=== PATIENT | male | born 1990 | race Hispanic/Latino ===

== ENCOUNTER 2017-01-02 14:06 | Emergency (ER) | payer SELFPAY ==
[2017-01-02 14:16] VITALS: TEMP 99
[2017-01-02] MEDS ORDERED: METOPROLOL TARTRATE 50 MG TAB PO ONE (14:27)
[2017-01-02] MEDS ORDERED: ASPIRIN TABLET 325 MG TAB PO ONE (14:30)
--- NOTE | 2017-01-02 15:18 | RAD ---
EXAM DESCRIPTION: Abdomen Series CLINICAL HISTORY: 26 years Male, lbp, urinary frequency, chest pain, htn COMPARISON: None. FINDINGS: Three views including an upright view of the chest show clear lung guzman and no free abdominal air. The heart and vascularity are normal in no consolidation evident. The upper abdomen demonstrates a normal bowel gas pattern with a small normal air-fluid level within the stomach. Modest amount of stool within the colon and rectum is evident. The bony pelvis and spine is unremarkable. No soft tissue masses or unusual calculi noted. IMPRESSION: Normal examination including a abdomen two views and chest one view Electronically signed by: Omid Stroud MD 01/02/2017 3:16 PM PROPERTY FIELD INSPECTOR
--- NOTE | 2017-01-02 15:19 | CT ---
EXAM DESCRIPTION: Head CLINICAL HISTORY: uncontrolled htn, decreased vision left eye COMPARISON: None available TECHNIQUE: Non contrast cranial CT This exam was performed according to our departmental dose-optimization program, which includes automated exposure control, adjustment of the mA and/or kV according to patient size and/or use of iterative reconstruction technique. FINDINGS: Ventricles and sulci are unremarkable for age. There is no hemorrhage or mass or subdural hematoma. There are no significant white matter abnormalities detected. The calvarium is unremarkable. The visualized paranasal sinuses and the mastoids are clear. IMPRESSION: 1. Normal CT head Electronically signed by: Omid Stroud MD 01/02/2017 3:18 PM ORGANIC PREPARATION ANALYST
[2017-01-02] MEDS ORDERED: SODIUM CHLORIDE 0.9% 1000ML 1,000 ML IVS ONE (15:33)
[2017-01-02] MEDS ORDERED: cloNIDine HCL 0.1 MG TAB PO ONE (15:39)
--- NOTE | 2017-01-02 18:00 | CT ---
EXAM DESCRIPTION: Abdoment/Pelvis w/o Contrast CLINICAL HISTORY: back pain, frequency, renal failure COMPARISON: None Available. TECHNIQUE: Contiguous axial images of the abdomen and pelvis were obtained followed by reconstruction images. This exam was performed according to our departmental dose-optimization program, which includes automated exposure control, adjustment of the mA and/or kV according to patient size and/or use of iterative reconstruction technique. FINDINGS: The liver, spleen, pancreas and kidneys are within normal limits. There is no hydronephrosis or renal stones. The gallbladder is collapsed likely nonfasting. Adrenal glands are within normal limits. Aorta is of normal caliber and tapering. There is no free fluid in the abdomen or pelvis. There is no bowel obstruction. There is no stranding of the mesenteric fat to suggest an inflammatory response. The appendix is not well seen but there is no definite evidence of appendicitis. There is no pericecal inflammation. No acute bony abnormality. IMPRESSION: No acute intra-abdominal abnormality. Electronically signed by: Moi Means 01/02/2017 5:59 PM SPEECH COMMUNICATION INSTRUCTOR
--- NOTE | 2017-01-02 18:23 | ED.PDOC ---
History of Present Illness - General Chief Complaint: Cardiovascular Problem Stated Complaint: Low back discomfort, Eye disturbance Time Seen by Provider: 01/02/17 14:07 Source: patient, family Exam Limitations: no limitations - History of Present Illness Initial Comments: the patient is a 26-year-old male presenting to the emergency room secondary to a multitude of symptoms progressive over the last few weeks actually. The worst has been in the last couple of days. Over the last 3-4 days the patient has had increasing blurry vision little worse with the left eye than the right. He has had increasing back discomfort with cramps. He has had significant urinary frequency, reporting that he has had to go urinate about every 10-15 minutes. He checked his blood pressure today at [facility] and it was in the 200s over 100s so he showed up here. He also has noted some intermittent chest discomfort over the last couple of days. He has had some nausea. He does report that he does have a history of high blood pressure and has been off medications for at least a year. He reports that he does have some kidney problems though he does not know what they are or what they are from or how bad they are. 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 No history of diabetes. Timing/Duration: unsure, constant, getting worse Severity: moderate Improving Factors: nothing Worsening Factors: nothing Associated Symptoms: chest pain, loss of appetite, malaise, nausea/vomiting, weakness Allergies/Adverse Reactions: Allergies NO KNOWN ALLERGY Allergy (Verified 01/02/17 14:14) Home Medications: Ambulatory Orders NK [NK] 01/02/17 Review of Systems - Review of Systems Constitutional: States: malaise, weakness EENTM: States: blurred vision Respiratory: States: short of breath - mainly with activity Cardiology: States: chest pain - intermittent and more spasmodic in type Gastrointestinal/Abdominal: States: nausea Genitourinary: States: frequency Musculoskeletal: States: back pain, muscle stiffness Skin: States: no symptoms reported Neurological: States: headache - moderate Endocrine: States: increased thirst, increased urine All other Systems: No Change from Baseline Past Medical History (General) - Patient Medical History Hx Stroke: No Hx Congestive Heart Failure: No Hx Diabetes: No Surgical History: no surgical history - Vaccination History Hx Influenza Vaccination: No Hx Pneumococcal Vaccination: No - Social History Hx Tobacco Use: No Family Medical History - Family History Father Family History: No Known Living Status: Still Living Physical Exam - Physical Exam General Appearance: Alert, Anxious Eye Exam: left other - he does appear to have some mild decreased visual acuity with the left eye. Red reflex appears normal. I see no evidence of any obvious large hemorrhage. Visual guzman appear intact. Extraocular movements are intact., bilateral normal Ears, Nose, Throat: hearing grossly normal, normal ENT inspection, normal pharynx Neck: full range of motion, supple Respiratory: lungs clear, normal breath sounds, no respiratory distress, no accessory muscle use Cardiovascular/Chest: normal peripheral pulses, no edema, tachycardia - sinus Peripheral Pulses: radial,right: 2+, radial,left: 2+, dorsalis pedis,right: 2+, dorsalis pedis,left: 2+ Gastrointestinal/Abdominal: non tender, soft Rectal Exam: deferred Back Exam: normal inspection, no CVA tenderness, no vertebral tenderness Extremity: normal range of motion, non-tender, normal inspection, no pedal edema Neurologic: uat tester II-XII nml as tested - with the exception of the vision changes , no motor/sensory deficits, alert, normal mood/affect, oriented x 3 Skin Exam: normal color Comments: Vital Signs - 24 hr 01/02/17 01/02/17 01/02/17 14:14 15:27 15:46 Temperature 99.0 F Pulse Rate [ 126 H 112 H 111 H Left Radial] Respiratory 20 20 Rate Blood Pressure 163/118 194/124 189/125 [Left Arm] O2 Sat by Pulse 97 96 Oximetry 01/02/17 01/02/17 16:07 17:12 Temperature Pulse Rate [ 69 Left Radial] Respiratory Rate Blood Pressure 114/61 171/116 [Left Arm] O2 Sat by Pulse 98 Oximetry Progress - Progress Progress: 01/02/17 18:28 the patient is a 26-year-old male presenting to the emergency room with a multitude of symptoms. Symptoms are probably from acute on chronic renal failure and hypertensive urgency. The patient received a dose of metoprolol and clonidine and has had a significant reduction in his blood pressures from the 200s down to the 150s. Heart rate has also decreased. He has received a liter of IV fluids for the acute renal failure. Source of the renal failure is uncertain at this time. The polyuria is certainly notable and of an uncertain source. Symptoms of chest discomfort, headache and nausea have improved with correction of blood pressure. The patient will be transferred for nephrology evaluation. Postvoid residual of the bladder was approximately 120 cc by me by ultrasound. transferred for higher level of care. - Results/Orders Results/Orders: Laboratory Tests 01/02/17 01/02/17 01/02/17 15:00 15:00 15:00 WBC 10.5 RBC 3.10 L Hgb 9.8 L Hct 27.6 L MCV 89.0 MCH 31.6 H MCHC 35.5 RDW 12.2 Plt Count 228 MPV 7.6 Absolute Neuts (auto) 8.10 H Absolute Lymphs (auto) 1.30 Absolute Monos (auto) 0.70 Absolute Eos (auto) 0.30 Absolute Basos (auto) 0.10 Neutrophils % 77.1 Lymphocytes % 12.1 L Monocytes % 6.8 Eosinophils % 3.3 Basophils % 0.7 PT 12.5 INR 1.110 PTT (SP) 30.5 pCO2 pO2 HCO3 ABG pH ABG O2 Saturation ABG Base Excess ABG Deoxyhemoglobin Oxyhemoglobin % Carboxyhemoglobin % Methemoglobin % Sat Calc Total Hemoglobin Sodium 141 Potassium 3.9 Chloride 109 Carbon Dioxide 17 L Anion Gap 18.9 H BUN 73 H Creatinine 10.66 H* BUN/Creatinine Ratio 6.8 L Random Glucose 79 Hemoglobin A1c Serum Osmolality 301.7 H Calcium 9.1 Magnesium 1.8 Total Bilirubin 0.6 AST 14 ALT 13 Alkaline Phosphatase 77 Creatine Kinase 277 H* CK-MB (CK-2) 3.2 CK-MB (CK-2) % Not Reportable Troponin I 0.03 B-Natriuretic Peptide 629.0 H* Serum Total Protein 7.7 Albumin 3.8 Globulin 3.9 H Albumin/Globulin Ratio 1.0 L Total PSA TSH 1.45 Urine Color Urine Appearance Urine pH Ur Specific [place] Urine Protein Urine Glucose (UA) Urine Ketones Urine Blood Urine Nitrite Urine Bilirubin Urine Urobilinogen Ur Leukocyte Esterase Urine RBC Urine WBC Ur Epithelial Cells Amorphous Sediment Urine Bacteria 01/02/17 01/02/17 01/02/17 15:00 15:20 15:41 WBC RBC Hgb Hct MCV MCH MCHC RDW Plt Count MPV Absolute Neuts (auto) Absolute Lymphs (auto) Absolute Monos (auto) Absolute Eos (auto) Absolute Basos (auto) Neutrophils % Lymphocytes % Monocytes % Eosinophils % Basophils % PT INR PTT (SP) pCO2 pO2 HCO3 ABG pH ABG O2 Saturation ABG Base Excess ABG Deoxyhemoglobin Oxyhemoglobin % Carboxyhemoglobin % Methemoglobin % Sat Calc Total Hemoglobin Sodium Potassium Chloride Carbon Dioxide Anion Gap BUN Creatinine BUN/Creatinine Ratio Random Glucose Hemoglobin A1c 5.1 Serum Osmolality Calcium Magnesium Total Bilirubin AST ALT Alkaline Phosphatase Creatine Kinase CK-MB (CK-2) CK-MB (CK-2) % Troponin I B-Natriuretic Peptide Serum Total Protein Albumin Globulin Albumin/Globulin Ratio Total PSA 0.83 TSH Urine Color Yellow Urine Appearance Clear Urine pH 6.0 Ur Specific [place] 1.020 Urine Protein >=300 H Urine Glucose (UA) 100 H Urine Ketones Negative Urine Blood Moderate H Urine Nitrite Negative Urine Bilirubin Negative Urine Urobilinogen 0.2 Ur Leukocyte Esterase Negative Urine RBC 1-3 Urine WBC 1-3 Ur Epithelial Cells 0 Amorphous Sediment 1+ Urine Bacteria Rare 01/02/17 16:15 WBC RBC Hgb Hct MCV MCH MCHC RDW Plt Count MPV Absolute Neuts (auto) Absolute Lymphs (auto) Absolute Monos (auto) Absolute Eos (auto) Absolute Basos (auto) Neutrophils % Lymphocytes % Monocytes % Eosinophils % Basophils % PT INR PTT (SP) pCO2 34 L pO2 33 L* HCO3 16.3 ABG pH 7.300 L ABG O2 Saturation 53.6 L* ABG Base Excess -8.8 ABG Deoxyhemoglobin 44.9 H Oxyhemoglobin % 51.8 L Carboxyhemoglobin % 1.1 Methemoglobin % Sat 2.2 H Calc Total Hemoglobin 9.2 L Sodium Potassium Chloride Carbon Dioxide Anion Gap BUN Creatinine BUN/Creatinine Ratio Random Glucose Hemoglobin A1c Serum Osmolality Calcium Magnesium Total Bilirubin AST ALT Alkaline Phosphatase Creatine Kinase CK-MB (CK-2) CK-MB (CK-2) % Troponin I B-Natriuretic Peptide Serum Total Protein Albumin Globulin Albumin/Globulin Ratio Total PSA TSH Urine Color Urine Appearance Urine pH Ur Specific [place] Urine Protein Urine Glucose (UA) Urine Ketones Urine Blood Urine Nitrite Urine Bilirubin Urine Urobilinogen Ur Leukocyte Esterase Urine RBC Urine WBC Ur Epithelial Cells Amorphous Sediment Urine Bacteria please note that the above blood gas is a mixed venous. It was primarily done to check a pH. . CT scan of the head does not appear to show any acute pathology. Acute abdominal Series does not show any acute pathology but moderate constipation. CT scan of abdomen and pelvis without contrast shows no obvious acute pathology. kidneys apparently appear normal. EKG shows sinus tachycardia with a rate of 122 bpm. Borderline criteria for LVH. No acute ST segment changes concerning for ischemia. Normal axis. Normal corrected QT interval. Departure - Departure Clinical Impression: Hypertensive urgency, malignant Acute renal failure Qualifiers: Acute renal failure type: unspecified Qualified Code(s): N17.9 - Acute kidney failure, unspecified Disposition: Transfer to Hospital Home Medications: Ambulatory Orders NK [NK] 01/02/17 Transfer to Outside Facility - Transfer Information Accepting Provider:: dr agudelo Accepting Facility: [facility] Reason for Transfer: required specialist not available
[2017-01-02 19:00] VITALS: BP 169/117; O2SAT 97
== END 2017-01-02 19:16 | disposition short-term general hospital (02) ==
LOC: ER 14:06
DX: N17.9 Acute kidney failure, unspecified (principal); I16.0 Hypertensive urgency
CPT/HCPCS: 36415; 70450; 74020; 74176; 80053; 81001; 82550; 82553; 83036; 83735; 83880; 84443; 84484; 85025; 85610; 85730; 93005; G0103; J7030

== ENCOUNTER → 2017-08-28 | Outpatient (CLI) | payer MEDICARE, MEDICAID ==
--- NOTE | 2017-08-28 16:55 | CT ---
EXAM DESCRIPTION: Head: Computed Tomography. CLINICAL HISTORY: OTHER VISUAL DISTURBANCES COMPARISON: CT scan of the head 01/02/2017 TECHNIQUE: Non-helical axial scans through the skull and brain, at 2.5 mm intervals, non-contrast. Coronal and sagittal 2.0 reconstructions. Total Exam DLP: 859.97 mGy-cm. This exam was performed according to our departmental dose-optimization program which includes automated exposure control, adjustment of the mA and/or kV according to patient size and/or use of iterative reconstruction technique; to reduce radiation dose to as low as reasonably achievable (ALARA). FINDINGS: No hemorrhage, no mass-effect, and no midline shift. Normal carrillo-white matter differentiation. No abnormal white matter density in the brain parenchyma Vascular calcifications not present.; physiologic calcifications in the pineal gland and choroid plexus. No effacement or displacement of the ventricles, CSF spaces, or subdural spaces. No extra axial fluid collection or hemorrhage. No gross abnormalities of the bony calvarium. Included paranasal sinuses and mastoid air cells are well - aerated except partial visualization of what may be a collapsed right maxillary antrum. Widening of the right nasal passageway with spur projecting into the left nasal passageway. Optic globes and soft tissues of the orbits appear symmetric.. IMPRESSION: 1. No hemorrhage, no mass effect, no midline shift. Normal CT scan of the brain without IV contrast. 2. CT scans are insensitive for detecting small CVAs in the first 24 hours after onset. Evaluation of the brain stem is also limited. If symptoms persist, consider NON-EMERGENT MRI scan of the brain with diffusion imaging. 3. Upper right maxillary antrum is not well seen in the right nasal passageways distended. Correlate for prior sinus disease, trauma, or sinus surgery in the right anterolateral region and right nasal passageway. Soft tissues of the orbits and optic globes are unremarkable, however this is a non-IV contrast study. Electronically signed by: Moi Bills MD 08/28/2017 4:53 PM CDT
== END ==
LOC: CT 15:51
PROVIDERS: ATTEND Nurse Practitioner Family
DX: H53.8 Other visual disturbances (principal)